=== PATIENT | female | born 1940 | race Caucasian/White ===

== ENCOUNTER → 2020-10-26 | Outpatient (CLI) | payer MEDICARE | LOC: EXRD 15:43 | DX: E04.2 Nontoxic multinodular goiter (principal) | CPT/HCPCS: 76536 ==

== ENCOUNTER → 2021-06-25 | Outpatient (CLI) | payer MEDICARE | LOC: EXRD 11:29 → KOH-I 11:30 | DX: E04.2 Nontoxic multinodular goiter (principal) | CPT/HCPCS: 76536 ==

== ENCOUNTER → 2021-12-30 | Outpatient (CLI) | payer MEDICARE | LOC: EXRD 12:50 | DX: E04.2 Nontoxic multinodular goiter (principal) | CPT/HCPCS: 76536 ==

== ENCOUNTER → 2022-02-04 | Outpatient (CLI) | payer MEDICARE | LOC: KOH-I 15:26 | DX: K56.690 Other partial intestinal obstruction (principal); K59.00 Constipation, unspecified; I71.4 Abdominal aortic aneurysm, without rupture; N83.201 Unspecified ovarian cyst, right side | CPT/HCPCS: 74176 ==